=== PATIENT | female | born 1960 | race Two or more races ===

== ENCOUNTER 2021-04-30 15:47 | Inpatient (IN) | payer OTHER ==
[~2021-04-30] VITALS: Ht 162.6 cm; Wt 92.5 kg
[2021-04-30] MEDS ORDERED: METOPROLOL SUCC50 MG (15:59)
[2021-04-30] MEDS ORDERED: PLAVIX75 MG (16:00)
[2021-05-03] MEDS ORDERED: ALBUTEROL2.5 MG/3 M (11:18)
[2021-05-03] MEDS ORDERED: MONTELUKAST SOD10 MG (11:19)
[2021-05-03] MEDS ORDERED: PRED FORTE5 ML (11:19)
[2021-05-03] MEDS ORDERED: CETIRIZINE HCL10 MG (11:19)
[2021-05-03] MEDS ORDERED: PHENTERMINE H37.5 M1 (11:19)
[2021-05-03] MEDS ORDERED: OPTIVE EYE DROP15 ML (11:19)
[2021-05-03] MEDS ORDERED: ST. JOSEPH ASPI81 M2 (11:19)
[2021-05-03] MEDS ORDERED: ALENDRONATE SOD70 MG (11:20)
[2021-05-03] MEDS ORDERED: ROSUVASTATIN CA40 MG (11:20)
[2021-05-03] MEDS ORDERED: POLYMYXIN B-TMP10 ML (11:20)
[2021-05-03] MEDS ORDERED: PANTOPRAZOLE SO40 MG (11:20)
[2021-05-03] MEDS ORDERED: BUDESONIDE0.5 MG/21 (11:20)
== END 2021-05-12 12:51 | disposition home or self-care (01) | DRG 177 ==
LOC: ER 15:47 → MEDJ 05-01 12:06
PROVIDERS: ADMIT Internal Medicine; ATTEND Internal Medicine
PROC: 3E0F7SF Introduction of Other Gas into Respiratory Tract, Via Natural or Artificial Opening (ICD-10-PCS; 2021-05-01)
PROC: 4A12X4Z Monitoring of Cardiac Electrical Activity, External Approach (ICD-10-PCS; 2021-05-02)
PROC: 8E0ZXY6 Isolation (ICD-10-PCS; principal; 2021-05-03)
PROC: XW033E5 Introduction of Remdesivir Anti-infective into Peripheral Vein, Percutaneous Approach, New Technology Group 5 (ICD-10-PCS; 2021-05-04)
DX: U07.1 COVID-19 (principal); J12.82 Pneumonia due to coronavirus disease 2019; N39.0 Urinary tract infection, site not specified; K62.5 Hemorrhage of anus and rectum; I10 Essential (primary) hypertension; I25.10 Atherosclerotic heart disease of native coronary artery without angina pectoris; Z98.61 Coronary angioplasty status; R43.0 Anosmia; R43.2 Parageusia; R09.02 Hypoxemia